=== PATIENT | female | born 1945 | race Caucasian/White ===

== ENCOUNTER → 2018-10-31 07:49 | Outpatient (CLI) | payer MEDICARE, BC, SELFPAY ==
--- NOTE | 2018-10-31 07:54 | AS_ITS ---
Renal Arterial Duplex Indications: 405.91 Unspecified renovascular hypertension. CKD Stage 3 IMPRESSIONS 1. 50% or greaterstenosis involving the right renal artery 2. 50 % 0r greaterstenosis involving the left renal artery History: Risk factors: Hypertension. Renal disease. Complete renal arterial duplex. Duplex scan and Doppler flow study including spectral analysis, color and gilbert scale imaging. Height: Height: 165.1cm. Height: 65in. Weight: Weight: 90.7kg. Weight: 199.6lb. Body mass index: BMI: 33.3kg/m^2. Body surface area: BSA: 2.07m^2. Location: Vascular laboratory. Patient status: Outpatient. Tables: Arterial flow: + +--------+--------+ Location V sys V ed + +--------+--------+ Right renal - proximal 234cm/s 43.6cm/s + +--------+--------+ Right renal - mid 124cm/s 28.5cm/s + +--------+--------+ Right renal - distal 85.6cm/s 20.5cm/s + +--------+--------+ Left renal - proximal 222cm/s 21.8cm/s + +--------+--------+ Left renal - mid 98.6cm/s 26.5cm/s + +--------+--------+ Left renal - distal 74.4cm/s 19cm/s + +--------+--------+ Right renal-origin 156cm/s 48.3cm/s + +--------+--------+ Left renal-origin 204cm/s 18.7cm/s + +--------+--------+ Aorta-Prox 89.7cm/s -------- + +--------+--------+ Renal anatomy: + +------+------+ Left Right + +------+------+ Long axis 10.4cm 10.2cm + +------+------+ Short axis 5.7cm 6.1cm + +------+------+ Cortical thickness 1.6cm 1.6cm + +------+------+ Velocity ratios: + +-----+ V sys + +-----+ Right renal/aortic 2.6 + +-----+ Left renal/aortic 2.5 + +-----+ (Report amended ) Electronically signed by: Niles Vsos [id number]
== END ==
PROVIDERS: PCP Family Medicine; Visit Provider Hospitalist
DX: I12.9 Hypertensive chronic kidney disease with stage 1 through stage 4 chronic kidney disease, or unspecified chronic kidney disease (principal); N18.3 Chronic kidney disease, stage 3 (moderate)
CPT/HCPCS: 93976